=== PATIENT | male | born 1960 | race African-American/Black ===

== ENCOUNTER 2017-08-26 11:38 | Emergency (ER) | payer OTHER ==
[~2017-08-26] VITALS: Ht 175.3 cm; Wt 100.0 kg
[2017-08-26] MEDS ORDERED: HYDR-3280 PO (11:48)
[2017-08-26] MEDS ORDERED: LISI2.5T47 PO (11:48)
[2017-08-26] MEDS ORDERED: INSU100V3 SUBCUT (11:48)
[2017-08-26] MEDS ORDERED: METF-815 PO (11:48)
[2017-08-26] MEDS ORDERED: KETOROLAC 30MG/ML VIAL IV STA (12:47)
[2017-08-26] MEDS ORDERED: ONDANSETRON HCL 4MG/2ML VIAL IV STA (12:47)
[2017-08-26] MEDS ORDERED: SODIUM CHLORIDE 0.9% 1,000 ML IV ONE (12:47)
[2017-08-26] MEDS ORDERED: MORPHINE SULFATE 4 MG/ML CPJ (NOT FOR IM USE) IV STA (12:47)
[2017-08-26 13:07] LABS: BASOPHILS % 1.2 % (0.0-2.0); EOSINOPHILS % 2.2 % (0.0-5.0); HEMATOCRIT. 40.5 % (42.0-52.0); HEMOGLOBIN. 13.1 g/dL (14.0-18.0); LYMPHOCYTES % 33.9 % (20.0-50.0); MEAN CORPUSCULAR VOLUME 86.6 fL (80.0-94.0); MEAN PLATELET VOLUME 8.2 fl (7.4-10.4); MONOCYTES % 11.8 % (2.0-8.0); NEUTROPHILS % 50.9 % (40.0-76.0); PLATELET 238 x1000/uL (130-400); RED BLOOD CELL COUNT 4.68 mill/uL (4.7-6.1); RED CELL DISTRIBUTION WIDTH 14.7 % (11.6-14.6)
[2017-08-26 13:12] LABS: CHLORIDE 106 mEq/L (98-107)
[2017-08-26 13:15] LABS: PARTIAL THROMBOPLASTIN TIME 23.8 sec (23.4-31.0); PROTHROMBIN TIME 10.8 sec (9.4-11.6)
[2017-08-26 13:22] LABS: CARBON DIOXIDE 31 mEq/L (21-32)
[2017-08-26 15:15] LABS: PLATELET ESTIMATE NORMAL
[2017-08-26 16:39] LABS: CLARITY URINE CLEAR (CLEAR); COLOR URINE YELLOW (YELLOW); GLUCOSE URINE NEGATIVE (NEGATIVE); KETONES URINE NEGATIVE (NEGATIVE); LEUKOCYTE ESTERASE URINE NEGATIVE (NEGATIVE); NITRITE URINE NEGATIVE (NEGATIVE); OCCULT BLOOD URINE NEGATIVE (NEGATIVE); PROTEIN URINE NEGATIVE (NEGATIVE); UROBILINOGEN URINE 0.2 E.U./dL (0.2-1.0)
[2017-08-26 17:15] VITALS: BP 139/82
== END 2017-08-26 17:32 | disposition home or self-care (01) ==
LOC: ER 12:20
DX: M54.9 Dorsalgia, unspecified (principal); M79.604 Pain in right leg; I10 Essential (primary) hypertension; E11.9 Type 2 diabetes mellitus without complications; I49.1 Atrial premature depolarization; M54.30 Sciatica, unspecified side; Z79.4 Long term (current) use of insulin; Z86.011 Personal history of benign neoplasm of the brain; Z98.890 Other specified postprocedural states
CPT/HCPCS: 36415; 74176; 80053; 81003; 85025; 85610; 85730; 93005; 96361; 96374; 96375; 99285; J1885; J2270; J2405; J7030

== ENCOUNTER 2020-02-17 20:01 | Emergency (ER) | payer OTHER ==
[~2020-02-17] VITALS: Ht 175.3 cm; Wt 129.3 kg
[~2020-02-17 20:01] MED LIST: HYDR-3280 PO; INSU100V3 SUBCUT; LISI2.5T47 PO; METF-815 PO
[2020-02-17] MEDS ORDERED: DEXAMETHASONE 4MG TABLET PO ONE (21:45)
[2020-02-17] MEDS ORDERED: ACETAMINOPHEN WITH CODEINE 300/30MG TABLET PO ONE (21:45)
[2020-02-17 21:54] VITALS: BP 140/88
== END 2020-02-17 22:03 | disposition home or self-care (01) ==
LOC: ER 20:01
DX: M54.42 Lumbago with sciatica, left side (principal)
CPT/HCPCS: 99283; J8540

== ENCOUNTER 2022-08-14 11:14 | Emergency (ER) | payer OTHER ==
[~2022-08-14] VITALS: Ht 175.3 cm; Wt 120.0 kg
[~2022-08-14 11:14] MED LIST changes: -HYDR-3280 PO; +HYDR-4350 PO; -METF-815 PO; +METF-873 PO
[2022-08-14 11:35] VITALS: BP 139/65
[2022-08-14] MEDS ORDERED: SODIUM CHLORIDE 0.9% 250 ML IV ONE (12:00)
[2022-08-14 12:17] LABS: BASOPHILS % 0.5 % (0.0-2.0); HEMATOCRIT. 45.5 % (42.0-52.0); HEMOGLOBIN. 14.8 g/dL (14.0-18.0); MEAN CORPUSCULAR HEMOGLOBIN 29.9 pg (28.0-32.0); MEAN CORPUSCULAR VOLUME 91.8 fL (80.0-94.0); MEAN PLATELET VOLUME 8.2 fl (7.4-10.4); MONOCYTES % 9.4 % (2.0-8.0); NEUTROPHILS % 76.1 % (40.0-76.0); PLATELET 331 x1000/uL (130-400); RED BLOOD CELL COUNT 4.95 mill/uL (4.7-6.1); RED CELL DISTRIBUTION WIDTH 14.9 % (11.6-14.6)
[2022-08-14 12:44] LABS: CHLORIDE 103 mEq/L (98-107)
[2022-08-14 12:55] LABS: ETHANOL BLOOD < 10 mg/dL
[2022-08-14 13:09] LABS: *AMPHETAMINES SCREEN URINE NEGATIVE (NEGATIVE); *BARBITURATES SCREEN URINE NEGATIVE (NEGATIVE); *BENZODIAZEPINES SCREEN URINE PRESUMTIVE POSITIVE (NEGATIVE); *COCAINE SCREEN URINE NEGATIVE (NEGATIVE); CANNABINOID URINE SCREEN NEGATIVE (NEGATIVE); METHADONE URINE SCREEN NEGATIVE (NEGATIVE); OPIATES URINE SCREEN NEGATIVE (NEGATIVE); PHENCYCLIDINE URINE SCREEN NEGATIVE (NEGATIVE)
== END 2022-08-14 13:45 | disposition home or self-care (01) ==
LOC: ER 11:14
DX: R55 Syncope and collapse (principal); E11.9 Type 2 diabetes mellitus without complications; I10 Essential (primary) hypertension; Z13.9 Encounter for screening, unspecified; Z86.39 Personal history of other endocrine, nutritional and metabolic disease
CPT/HCPCS: 36415; 70450; 71045; 80053; 80305; 80320; 83880; 84484; 84550; 85025; 93005; 96360; 99285; J7050; G0480

== ENCOUNTER 2023-01-22 08:23 | Emergency (ER) | payer OTHER ==
[~2023-01-22] VITALS: Ht 182.9 cm; Wt 100.0 kg
[2023-01-22] MEDS ORDERED: ONDANSETRON HCL 4MG/2ML INJ IV STA (09:03)
[2023-01-22] MEDS ORDERED: MORPHINE SULFATE 4 MG/ML CPJ (NOT FOR IM USE) IV STA (09:03)
[2023-01-22] MEDS ORDERED: SODIUM CHLORIDE 0.9% 1,000 ML IV ONE ×2 (09:15→11:15)
[2023-01-22 09:16] LABS: HEMATOCRIT. 38.4 % (42.0-52.0); HEMOGLOBIN. 12.7 g/dL (14.0-18.0); MEAN CORPUSCULAR HEMOGLOBIN 31.5 pg (28.0-32.0); MEAN CORPUSCULAR VOLUME 95.3 fL (80.0-94.0); MEAN PLATELET VOLUME 8.7 fl (7.4-10.4); PLATELET 187 x1000/uL (130-400); RED BLOOD CELL COUNT 4.03 mill/uL (4.7-6.1); RED CELL DISTRIBUTION WIDTH 12.5 % (11.6-14.6)
[2023-01-22 09:29] LABS: CHLORIDE 102 mEq/L (98-107)
[2023-01-22 09:39] LABS: INR 1.2; PROTHROMBIN TIME 12.9 sec (9.6-11.0)
[2023-01-22] MEDS ORDERED: IOHEXOL-300 100 ML BOTTLE ONE (10:18)
[2023-01-22 10:19] LABS: PLATELET ESTIMATE NORMAL
[2023-01-22] MEDS ORDERED: AZITHROMYCIN 500MG/250ML 250 ML IV ONE (11:15)
[2023-01-22] MEDS ORDERED: CEFTRIAXONE 1 G PREMIX 50 ML IV ONE (11:15)
[2023-01-22] MEDS ORDERED: MORPHINE SULFATE 4 MG/ML CPJ (NOT FOR IM USE) IV ONE (11:30)
[2023-01-22 13:00] VITALS: BP 127/71
== END 2023-01-22 18:10 | disposition short-term general hospital (02) ==
LOC: ER 08:23 → CANBEDREQ 12:59 → ER 18:10
DX: J18.9 Pneumonia, unspecified organism (principal); R91.8 Other nonspecific abnormal finding of lung field; I10 Essential (primary) hypertension; E11.9 Type 2 diabetes mellitus without complications; Z86.39 Personal history of other endocrine, nutritional and metabolic disease
CPT/HCPCS: 36415; 71045; 74177; 80053; 83605; 83690; 84484; 85025; 85610; 86850; 86900; 86901; 87040; 96361; 96365; 96367; 96375; 96376; 99285; J0456; J0696; J2270; J2405; J7030; Q9967

== ENCOUNTER 2024-12-21 13:10 | Emergency (ER) | payer OTHER ==
[~2024-12-21] VITALS: Ht 180.3 cm; Wt 77.0 kg
[~2024-12-21 13:10] MED LIST changes: +METF-1149 PO; -METF-873 PO
[2024-12-21 13:13] VITALS: O2SAT 100
[2024-12-21] MEDS ORDERED: MORPHINE SULFATE 2 MG/ML INJ (NOT FOR IM USE) IV ONE (15:00)
[2024-12-21] MEDS ORDERED: METHOCARBAMOL 500MG TABLET PO ONE (15:00)
[2024-12-21] MEDS ORDERED: KETOROLAC 30MG/ML VIAL IV ONE (15:00)
[2024-12-21] MEDS ORDERED: METHOCARBAMOL 500MG TABLET PO NR (17:00)
[2024-12-21] MEDS: LIDOCAINE 5% PATCH TOP SCH (17:11)
[2024-12-21] MEDS: MORPHINE SULFATE 2 MG/ML INJ (NOT FOR IM USE) IV NR (17:11)
[2024-12-21] MEDS: KETOROLAC 30MG/ML VIAL IV NR (17:11)
[2024-12-21] MEDS: METHOCARBAMOL 750MG TABLET PO NR (17:48)
[2024-12-21] MEDS ORDERED: HYDR-4001 MT (17:57)
[2024-12-21] MEDS ORDERED: IBUP-2028 MT (17:57)
[2024-12-21] MEDS ORDERED: METH-653 MT (17:57)
[2024-12-21] MEDS ORDERED: LIDO700A15 TP (17:57)
[2024-12-21 18:37] VITALS: BP 136/64; PULSE 66; RESP 17; TEMP 36.7; O2SAT 100
== END 2024-12-21 18:40 | disposition home or self-care (01) ==
LOC: ER 13:19
DX: M54.50 Low back pain, unspecified (principal); M54.17 Radiculopathy, lumbosacral region; E03.9 Hypothyroidism, unspecified; E11.9 Type 2 diabetes mellitus without complications; I10 Essential (primary) hypertension; M54.30 Sciatica, unspecified side
CPT/HCPCS: 99284; 96374; 96375; J1885; J2270